=== PATIENT | male | born 1955 | race Caucasian/White ===

== ENCOUNTER 2017-12-10 09:00 | Day surgery (SDC) | payer BC ==
[~2017-12-10] VITALS: Ht 177.8 cm; Wt 132.3 kg
[2017-12-10] VITALS (12 sets, daily range): BP systolic 121–154; BP diastolic 54–81; PULSE 67–86; TEMP 97.9–99
[2017-12-10] MEDS ORDERED: FORT1000TA PO (09:27)
[2017-12-10] MEDS ORDERED: COREG 25MG25 MG/TAB PO (09:28)
[2017-12-10] MEDS ORDERED: PRINIVIL20 MG PO (09:28)
[2017-12-10] MEDS ORDERED: ASPI325T6 PO (09:29)
[2017-12-10] MEDS ORDERED: ACTOS 15MG TAB15 MG PO (09:29)
[2017-12-10] MEDS ORDERED: LIPITOR20 MG PO (09:29)
[2017-12-10] MEDS ORDERED: VITAMINC1000TA PO (09:30)
[2017-12-10] MEDS ORDERED: OCUVITE1 TA1 PO (09:30)
[2017-12-10] MEDS ORDERED: NORVASC 10MG10 MG PO (09:31)
[2017-12-10] MEDS ORDERED: LASIX 40MG TABL40 MG PO (09:32)
[2017-12-10] MEDS ORDERED: LASIX 80MG TABL80 MG PO (09:32)
[2017-12-10] MEDS ORDERED: MUCINEX1200 MG PO (09:33)
[2017-12-10] MEDS ORDERED: NOVOLOG 100U100 U/M1 SQ (09:34)
[2017-12-10] MEDS ORDERED: PRILOSEC 20MG20 MG PO (09:35)
[2017-12-10] MEDS ORDERED: LEVEMIR100 U/ML SQ (09:35)
[2017-12-10] MEDS ORDERED: K-DUR20 MEQ PO (09:36)
[2017-12-10] MEDS ORDERED: ZANTAC 150MG T150 MG PO (09:36)
[2017-12-10] MEDS ORDERED: SPIRIVA RE2.5 MCG/Ac IH (09:37)
[2017-12-10] MEDS ORDERED: BREO IH (09:37)
[2017-12-10] MEDS ORDERED: INCRUSE EL62.5 MCG/A IH (09:38)
[2017-12-10 09:44] LABS: HEMATOCRIT 47.2 % (42.0-52.0); HEMOGLOBIN 15.8 g/dl (13.5-18.0); MEAN CELL VOLUME 94 fl (80.0-100.0); MEAN CORPUSCULAR HEMOGLOBIN 31 pg (27.0-31.0); MEAN CORPUSCULAR HGB CONC 34 g/dl (33.0-37.0); MEAN PLATELET VOLUME 10.4 fl (7.4-10.4); PLATELET COUNT 234 K/mm3 (130-400); RED BLOOD COUNT 5.04 M/mm3 (4.20-5.60); REDCELL DISTRIBUTION WIDTH-CV 13.9 % (11.5-14.5)
[2017-12-10 09:48] LABS: INR 1.1 (0.8-3.0); PROTHROMBIN TIME 12.4 SECONDS (9.7-12.8)
[2017-12-10 10:02] LABS: CALCIUM 8.9 mg/dL (8.4-10.2); CREATININE, serum 0.78 mg/dL (0.66-1.25); POTASSIUM 4.2 mmol/L (3.4-5.0)
== END 2017-12-10 16:54 | disposition home or self-care (01) ==
LOC: COL.CAR 09:00
PROVIDERS: Internal Medicine Cardiovascular Disease
DX: I25.10 Atherosclerotic heart disease of native coronary artery without angina pectoris (principal); R94.39 Abnormal result of other cardiovascular function study; I27.20 Pulmonary hypertension, unspecified; I42.9 Cardiomyopathy, unspecified; E11.9 Type 2 diabetes mellitus without complications; J44.9 Chronic obstructive pulmonary disease, unspecified; Z79.82 Long term (current) use of aspirin
CPT/HCPCS: J2250; J3010; Q9967

== ENCOUNTER → 2018-02-26 | Outpatient (CLI) | payer BC ==
[~2018-02-26] MED LIST: ACTOS 15MG TAB15 MG PO; ASPI325T6 PO; BREO IH; COREG 25MG25 MG/TAB PO; FORT1000TA PO; INCRUSE EL62.5 MCG/A IH; K-DUR20 MEQ PO; LASIX 40MG TABL40 MG PO; LASIX 80MG TABL80 MG PO; LEVEMIR100 U/ML SQ; LIPITOR20 MG PO; MUCINEX1200 MG PO; NORVASC 10MG10 MG PO; NOVOLOG 100U100 U/M1 SQ; OCUVITE1 TA1 PO; PRILOSEC 20MG20 MG PO; PRINIVIL20 MG PO; SPIRIVA RE2.5 MCG/Ac IH; VITAMINC1000TA PO; ZANTAC 150MG T150 MG PO
== END ==
LOC: COL.RAD 16:13
DX: I70.0 Atherosclerosis of aorta (principal); I70.8 Atherosclerosis of other arteries; K80.20 Calculus of gallbladder without cholecystitis without obstruction; E27.8 Other specified disorders of adrenal gland
CPT/HCPCS: Q9967